=== PATIENT | female | born 1990 | race Caucasian/White ===

== ENCOUNTER → 2016-12-23 | Outpatient (CLI) | payer OTHER ==
[~2016-12-23] VITALS: Ht 167.6 cm; Wt 65.0 kg
[~2016-12-23] MED LIST: PRENATAL TABLE1 EAC3 PO
[2016-12-23 15:12] VITALS: BP 120/67
== END | disposition home or self-care (01) ==
LOC: IVINF 15:00
DX: Z31.82 Encounter for Rh incompatibility status (principal); Z3A.28 28 weeks gestation of pregnancy; Z67.31 Type AB blood, Rh negative
CPT/HCPCS: 96372

== ENCOUNTER 2017-03-03 06:46 | Inpatient (IN) | payer OTHER ==
[~2017-03-03] VITALS: Ht 167.6 cm; Wt 70.3 kg
[2017-03-03] VITALS (22 sets, daily range): BP systolic 101–145; BP diastolic 58–93
[2017-03-03 07:53] LABS: EOSINOPHIL (%) 1.3 % (0-5); EOSINOPHIL COUNT 0.1 K/uL (0-0.3); HEMATOCRIT 29.3 % (36.0-46.0); IMMATURE GRANULOCYTE COUNT 0.1 K/uL; INSTRUMENT ABS NEUTROPHIL CT 5.8 K/uL; LYMPHOCYTE COUNT 1.6 K/uL (1.0-2.8); MCH 24.7 PG (29.0-34.0); MCHC 32.1 G/DL (30.0-36.0); MCV 76.9 FL (83-99); MEAN PLAT.VOLUME 9.6 uM^3 (9.5-12.4); MONOCYTE COUNT 0.6 K/uL (0-0.8); NEUTROPHIL (%) 70.5 % (45-76); NEUTROPHIL COUNT 5.8 K/uL (1.8-6.4); PLATELET COUNT 187 K/uL (156-360); RBC DIS.WIDTH-CV 13.3 % (11.8-14.6); RBC DIS.WIDTH-SD 37.1 % (39-53); RED BLOOD COUNT 3.81 M/uL (3.80-5.20); WHITE BLOOD COUNT 8.3 K/uL (4.1-10.2)
[2017-03-03] MEDS ORDERED: IBUPROFEN800 MG PO (15:06)
[2017-03-04 07:23] VITALS: BP 113/71
[2017-03-04 14:32] VITALS: BP 122/76
== END 2017-03-04 18:12 | disposition home or self-care (01) | DRG 775 ==
LOC: LDRP-OP 06:46 → 2WEST 06:47 → LDRP-OP 18:04 → 2WEST 03-04 18:12 → LDRP-OP 03-23 17:12
PROVIDERS: Obstetrics & Gynecology Obstetrics
PROC: 3E033VJ Introduction of Other Hormone into Peripheral Vein, Percutaneous Approach (ICD-10-PCS; principal; 2017-03-03)
PROC: 3E0P7VZ Introduction of Hormone into Female Reproductive, Via Natural or Artificial Opening (ICD-10-PCS; principal; 2017-03-03)
PROC: 3E0R3BZ Introduction of Anesthetic Agent into Spinal Canal, Percutaneous Approach (ICD-10-PCS; principal; 2017-03-03)
PROC: 10E0XZZ Delivery of Products of Conception, External Approach (ICD-10-PCS; principal; 2017-03-03)
PROC: 0U7C7ZZ Dilation of Cervix, Via Natural or Artificial Opening (ICD-10-PCS; principal; 2017-03-03)
PROC: 00HU33Z Insertion of Infusion Device into Spinal Canal, Percutaneous Approach (ICD-10-PCS; principal; 2017-03-03)
PROC: 10907ZC Drainage of Amniotic Fluid, Therapeutic from Products of Conception, Via Natural or Artificial Opening (ICD-10-PCS; principal; 2017-03-03)
DX: O69.1XX0 Labor and delivery complicated by cord around neck, with compression, not applicable or unspecified (principal); Z3A.39 39 weeks gestation of pregnancy; Z37.0 Single live birth
CPT/HCPCS: 85025; C1755; J3010; J7120